=== PATIENT | male | born 1995 | race Caucasian/White ===

== ENCOUNTER 2018-11-29 07:19 | Emergency (ER) | payer SELFPAY ==
[2018-11-29] MEDS: LIDOCAINE 1% (MPF) 5 ML VIAL INFIL (07:43)
== END 2018-11-29 08:46 | disposition home or self-care (01) ==
LOC: FTE 08:46
DX: L02.414 Cutaneous abscess of left upper limb (principal); F17.210 Nicotine dependence, cigarettes, uncomplicated
CPT/HCPCS: 10060; 99283-25

== ENCOUNTER 2018-12-01 14:55 | Emergency (ER) | payer MEDICAID | END 2018-12-01 18:11 | disposition home or self-care (01) | LOC: FTE 14:55 | DX: L02.414 Cutaneous abscess of left upper limb (principal) | CPT/HCPCS: 99283; Z7502 ==

== ENCOUNTER 2019-03-20 22:13 | Emergency (ER) | payer SELFPAY, MEDICAID ==
[2019-03-21] MEDS ORDERED: LIDOCAINE 1% (MDV) 10 ML INJ INJ (00:16)
[2019-03-21] MEDS: LIDOCAINE 1% (MDV) 20 ML INJ INJ (00:52)
== END 2019-03-21 01:28 | disposition home or self-care (01) ==
LOC: FTE 22:13
DX: L02.414 Cutaneous abscess of left upper limb (principal); K65.1 Peritoneal abscess
CPT/HCPCS: 10061; 99283-25

== ENCOUNTER 2019-07-19 10:25 | Emergency (ER) | payer SELFPAY ==
[2019-07-19] MEDS: LIDOCAINE 1% (MPF) 5 ML VIAL INFIL (10:51)
[2019-07-19] MEDS: ONDANSETRON 4 MG INJ IV (11:14)
[2019-07-19] MEDS: SOD CHLORIDE 0.9% 1,000 ML IV (11:14)
[2019-07-19] MEDS: morphine 4 MG/ML VIAL IV (11:18)
[2019-07-19] MEDS: CLINDAMYCIN 900 MG (PMX) 50 ML IVPB (11:19)
== END 2019-07-19 12:40 | disposition home or self-care (01) ==
LOC: FTE 10:25
DX: L02.512 Cutaneous abscess of left hand (principal)
CPT/HCPCS: 10060; 96365; 96375; 99284-25

== ENCOUNTER 2019-07-20 12:33 | Emergency (ER) | payer SELFPAY ==
[2019-07-20] MEDS: CEFTRIAXONE 1 GM/50 ML (PMX) 50 ML IVPB (15:10)
[2019-07-20] MEDS: DEXAMETHASONE 10 MG/ML 1 ML INJ IV (15:11)
[2019-07-20] MEDS: LIDOCAINE 4% CR TOP (15:11)
== END 2019-07-20 16:55 | disposition home or self-care (01) ==
LOC: FTE 12:33
DX: L02.512 Cutaneous abscess of left hand (principal); F17.210 Nicotine dependence, cigarettes, uncomplicated
CPT/HCPCS: 26010; 96365; 96375; 99284-25

== ENCOUNTER 2019-07-22 13:52 | Emergency (ER) | payer SELFPAY | END 2019-07-22 14:56 | disposition home or self-care (01) | LOC: E/R 14:56 | DX: Z48.00 Encounter for change or removal of nonsurgical wound dressing (principal) | CPT/HCPCS: 99281 ==